=== PATIENT | female | born 1945 | race Caucasian/White ===

== ENCOUNTER 2016-08-10 13:33 | Emergency (ER) | payer OTHER ==
[~2016-08-10] VITALS: Ht 165.1 cm; Wt 66.1 kg
[2016-08-10] MEDS ORDERED: MOTRIN600 MG PO (14:51)
[2016-08-10 15:06] VITALS: BP 133/56
== END 2016-08-10 15:39 | disposition home or self-care (01) ==
LOC: EME 13:33
DX: S42.022A Displaced fracture of shaft of left clavicle, initial encounter for closed fracture (principal); M25.512 Pain in left shoulder; M25.522 Pain in left elbow; W18.09XA Striking against other object with subsequent fall, initial encounter; Y93.01 Activity, walking, marching and hiking
CPT/HCPCS: 73000; 73030; 73080; 99281; 99284